=== PATIENT | male | born 1965 | race Caucasian/White ===

== ENCOUNTER 2017-02-11 18:38 | Emergency (ER) | payer MEDICAID ==
[~2017-02-11] VITALS: Ht 170.2 cm; Wt 77.7 kg
[~2017-02-11 18:38] MED LIST: CIPR-278 PO; DSS100 PO; HYDR-3965 PO; METR500 PO; ONDA4 PO; TRAM50TA4 PO
[2017-02-11] MEDS ORDERED: IBUPROFEN 800 MG TABLET PO ONE (20:00)
[2017-02-11 21:50] VITALS: BP 142/77
== END 2017-02-11 22:44 | disposition home or self-care (01) ==
LOC: EMS 18:39
DX: S90.02XA Contusion of left ankle, initial encounter (principal); W22.8XXA Striking against or struck by other objects, initial encounter; Y93.01 Activity, walking, marching and hiking; Y92.9 Unspecified place or not applicable; Y99.9 Unspecified external cause status
CPT/HCPCS: 99284

== ENCOUNTER 2023-04-11 04:01 | Emergency (ER) | payer MEDICAID, OTHER ==
[~2023-04-11] VITALS: Ht 170.2 cm; Wt 79.5 kg
[2023-04-11] MEDS ORDERED: HYDROCODONE/ACETAMINOPHEN 5-325 MG TABLET PO ONE (06:30)
[2023-04-11 08:30] VITALS: TEMP 97.8
[2023-04-11] MEDS ORDERED: LIDOCAINE 5% TRANSDERMAL PATCH TD ONE (10:45)
[2023-04-11] MEDS ORDERED: TRAM-559 PO (11:07)
[2023-04-11] MEDS ORDERED: LIDO700A15 TP (11:08)
[2023-04-11] MEDS ORDERED: KETOROLAC TROMETHAMINE 30 MG/ML VIAL IM ONE (11:15)
[2023-04-11 11:56] VITALS: BP 121/76; PULSE 71; RESP 16
== END 2023-04-11 12:01 | disposition home or self-care (01) ==
LOC: EMS 04:39
DX: S13.4XXA Sprain of ligaments of cervical spine, initial encounter (principal); M50.90 Cervical disc disorder, unspecified, unspecified cervical region; F17.210 Nicotine dependence, cigarettes, uncomplicated; X58.XXXA Exposure to other specified factors, initial encounter; Y93.89 Activity, other specified; Y92.89 Other specified places as the place of occurrence of the external cause; Y99.8 Other external cause status
CPT/HCPCS: 99285; 70450; 72125; 96372; J1885

== ENCOUNTER 2024-04-10 14:37 | Emergency (ER) | payer MEDICAID, OTHER ==
[~2024-04-10] VITALS: Ht 170.2 cm; Wt 75.0 kg
[~2024-04-10 14:37] MED LIST changes: -CIPR-278 PO; -DSS100 PO; -HYDR-3965 PO; +LIDO700A15 TP; -METR500 PO; -ONDA4 PO; -TRAM50TA4 PO; +TRAM50TA5 PO
[2024-04-10 14:53] VITALS: BP 117/71; PULSE 71; RESP 16; TEMP 98.7; O2SAT 96
[2024-04-10] MEDS: TraMADol HCL 50 MG TABLET PO ONE (16:20)
[2024-04-10] MEDS: MethylPREDNISolone SOD SUCC 125 MG/2 ML VIAL IM ONE (16:20)
[2024-04-10] MEDS ORDERED: COLC-3 PO (17:12)
== END 2024-04-10 17:44 | disposition home or self-care (01) ==
LOC: EMS 14:37
DX: M10.9 Gout, unspecified (principal)
CPT/HCPCS: 99283; 73610; 96372; J2919

== ENCOUNTER 2024-12-25 14:07 | Emergency (ER) | payer MEDICAID ==
[~2024-12-25] VITALS: Ht 170.2 cm; Wt 81.8 kg
[~2024-12-25 14:07] MED LIST changes: +COLC-3 PO; +LIDO-57 TP; -LIDO700A15 TP
[2024-12-25 15:07] LABS: BASOPHILS % (AUTO) 0.9 % (0.0-2.0); EOSINOPHILS % (AUTO) 3.6 % (1.0-6.0); HEMATOCRIT 41.2 % (41-53); LYMPHOCYTES # (AUTO) 2.1 K/uL (1.0-4.8); LYMPHOCYTES % (AUTO) 27.1 % (22.0-44.0); MEAN CORPUSCULAR HEMOGLOBIN 28.6 pg (26.0-34.0); MEAN CORPUSCULAR HGB CONC 34.1 G/dL (31.0-37.0); MEAN CORPUSCULAR VOLUME 84 fL (80-100); MONOCYTES # (AUTO) 0.7 K/uL (0.1-1.0); MONOCYTES % (AUTO) 8.9 % (2.0-9.0); NEUTROPHILS # (AUTO) 4.6 K/uL (1.8-7.7); NEUTROPHILS % (AUTO) 59.5 % (40.0-70.0); PLATELET COUNT (AUTO) 230 K/uL (150-450); RED BLOOD CELL COUNT(AUTO) 4.91 MIL/uL (4.50-5.90); RED CELL DISTRIBUTION WIDTH 13.1 % (11.5-14.5); WHITE BLOOD COUNT (AUTO) 7.6 K/uL (4.5-11.0)
[2024-12-25 15:13] LABS: ANION GAP 4 mmol/L (8-16); CALCIUM, TOTAL 8.6 mg/dL (8.8-10.5); CARBON DIOXIDE 30 mmol/L (22-29); CHLORIDE 103 mmol/L (98-107); CREATININE 0.94 mg/dL (0.60-1.30); GLOMERULAR FILTR. RATE CALC > 60 mL/min (>60); GLUCOSE,RANDOM 154 mg/dL (70-110); POTASSIUM 3.9 mmol/L (3.5-5.1); SODIUM SERUM 137 mmol/L (136-145); UREA NITROGEN, BLOOD 17 mg/dL (7-18)
[2024-12-25 15:16] LABS: PROTHROMBIN TIME 10.7 SEC (9.4-11.6)
[2024-12-25 15:17] LABS: ALBUMIN 3.5 g/dL (3.4-5.0); BILIRUBIN,DIRECT 0.1 mg/dL (0.00-0.20); BILIRUBIN,TOTAL 0.5 mg/dL (0.1-1.0); TOTAL PROTEIN, SERUM 6.9 g/dL (6.4-8.2)
[2024-12-25 15:24] LABS: TROPONIN I-HIGH SENSITIVITY 5 ng/L (<76)
[2024-12-25] MEDS: SODIUM CHLORIDE 0.9% 1,000 ML IV ONE (16:08)
[2024-12-25 16:48] LABS: APPEARANCE,URINE CLEAR (CLEAR); BILIRUBIN,URINE NEGATIVE (NEGATIVE); COLOR,URINE LIGHT YELLOW (YELLOW); GLUCOSE, URINE (UA) TRACE mg/dL (NEGATIVE); KETONES,URINE NEGATIVE (NEGATIVE); LEUKOCYTE ESTERASE ,URINE NEGATIVE (NEGATIVE); NITRATE,URINE NEGATIVE (NEGATIVE); OCCULT BLOOD,URINE NEGATIVE (NEGATIVE); PH,URINE 6.5 (5.0-8.0); PH,URINE DRUG SCREEN 6.5 (5.0-8.0); PROTEIN,URINE NEGATIVE (NEGATIVE); SPECIFIC GRAVITIY, URINE 1.012 (1.003-1.030); UROBILINOGEN,URINE <=1.0 mg/dL (<=1.0)
[2024-12-25 16:51] LABS: ALCOHOL, URINE DRUG SCREEN NEGATIVE (NEGATIVE); AMPHET/METH SCREEN,URINE NEGATIVE (NEGATIVE); BARBITURATE SCREEN, URINE NEGATIVE (NEGATIVE); BENZODIAZEPINES SCREEN,URINE NEGATIVE (NEGATIVE); CANNABINOID SCREEN,URINE NEGATIVE (NEGATIVE); COCAINE SCREEN,URINE NEGATIVE (NEGATIVE); METHADONE SCREEN, URINE NEGATIVE (NEGATIVE); OPIATE SCREEN,URINE NEGATIVE (NEGATIVE); PHENCYCLIDINE SCREEN,URINE NEGATIVE (NEGATIVE)
[2024-12-25] MEDS: KETOROLAC TROMETHAMINE 30 MG/ML VIAL IVP ONE (17:00)
[2024-12-25] MEDS: METOCLOPRAMIDE HCL 5 MG/ML 2 ML VIAL IVP ONE (17:00)
[2024-12-25] MEDS: MAGNESIUM SULFATE 1 GM in DEXTROSE 5%-WATER 50 ML IV ONE (17:06)
[2024-12-25] MEDS: DiphenhydrAMINE HCL 50 MG/ML VIAL IVP ONE (17:56)
[2024-12-25 18:03] VITALS: TEMP 98.1
[2024-12-25 18:30] VITALS: BP 121/76; PULSE 55; RESP 15; O2SAT 98
== END 2024-12-25 19:11 | disposition home or self-care (01) ==
LOC: EMS 14:16
DX: J32.9 Chronic sinusitis, unspecified (principal); F43.0 Acute stress reaction; R51.9 Headache, unspecified; Z86.0100 Personal history of colon polyps, unspecified; Z79.899 Other long term (current) drug therapy
CPT/HCPCS: 99285; 96365; 96375; 70450; 71045; 96361; 96366; 80048; 80076; 81003; 84484; 85025; 85610; 36415; 93005; 80307; J1885; J1200; J2765; J7060; J3475; J7030

== ENCOUNTER 2025-02-17 16:08 | Emergency (ER) | payer MEDICAID ==
[~2025-02-17] VITALS: Ht 170.2 cm; Wt 72.7 kg
[2025-02-17 16:44] LABS: PLATELET COUNT (AUTO) 265 K/uL (150-450); RED BLOOD CELL COUNT(AUTO) 5.18 MIL/uL (4.50-5.90); RED CELL DISTRIBUTION WIDTH 12.9 % (11.5-14.5); WHITE BLOOD COUNT (AUTO) 8.5 K/uL (4.5-11.0)
[2025-02-17 16:50] LABS: CALCIUM, TOTAL 9.4 mg/dL (8.8-10.5); CREATININE 1.00 mg/dL (0.60-1.30); GLOMERULAR FILTR. RATE CALC > 60 mL/min (>60); GLUCOSE,RANDOM 123 mg/dL (70-110); SODIUM SERUM 139 mmol/L (136-145); UREA NITROGEN, BLOOD 15 mg/dL (7-18)
[2025-02-17 16:59] LABS: TROPONIN I-HIGH SENSITIVITY 4 ng/L (<76)
[2025-02-17] MEDS ORDERED: KETOROLAC TROMETHAMINE 30 MG/ML VIAL IVP ONE (23:30)
[2025-02-17 23:42] VITALS: BP 124/85; PULSE 67; RESP 18; TEMP 97.905272; O2SAT 96
[2025-02-17] MEDS: KETOROLAC TROMETHAMINE 60 MG/2 ML VIAL IM ONE (23:42)
== END 2025-02-17 23:52 | disposition home or self-care (01) ==
LOC: EMS 16:08
DX: R42 Dizziness and giddiness (principal); H53.8 Other visual disturbances; R51.9 Headache, unspecified; H53.2 Diplopia; Z86.0100 Personal history of colon polyps, unspecified
CPT/HCPCS: 99285; 70450; 71045; 80048; 84484; 85025; 36415; 93005; 96372; J1885